=== PATIENT | male | born 1985 | race Caucasian/White ===

== ENCOUNTER 2024-06-03 15:59 | Outpatient (REF) | payer OTHER, SELFPAY ==
--- NOTE | 2024-06-03 | PFT_ITS ---
Flows: FEV1: 82 % of predicted at 3.63 L FVC: 92 % of predicted at 5.10 L FEV1/FVC: 71 % Bronchodilator response: Present in small to medium airways only Volumes: Total lung capacity: 84 % of predicted at 6.37 L Residual volume: 77 % of predicted at 1.32 L Slow vital capacity: 86 % of predicted at 5.05 L Expiratory reserve volume: 20 % of predicted at 0.34 L Diffusion capacity: Normal Impression: Moderate reversible obstructive ventilatory defect with bronchodilator response present in small to medium airways only. Decreased expiratory reserve volume suggests extrathoracic restriction likely secondary to abdominal obesity. MTDD
--- OUTSIDE RECORDS SUMMARY | 2024-06-03 16:47 | XMS_ITS | Clinical Summary ---
Author Organization [facility] Address [address] [place], [place] [id number] Phone Care Team Providers Care Director Of Strategic Sales Name Role Phone Sonido Gold MD Primary Care Provider Allergies No known active allergies Medications No known medications Immunizations Name Administration Dates Next Due Tdap 02/06/2018 Social History Tobacco Use Types Packs/Day Years Used Date Smoking Tobacco: Every Day Smokeless Tobacco: Never Alcohol Use Standard Drinks/Week Comments Yes 0 (1 standard drink = 0.6 oz pur e alcohol) Education Answer Date Recorded Are you interested in more education? Not on zachariah e 03/31/2023 Are you concerned about learning? Not on file 03/31/2023 No 03/31/2023 No 03/31/2023 Digital Access Answer Date Recorded No 03/31/2023 No 03/31/2023 Reliable internet access at home? Not on file 03/31/2023 Device with a working camera? Not on file Sex and Gender Information Value Date Recorded Sex Assigned at Not on file Gender Identity Not on file Sexual Orientation Not on file Last Filed Vital Signs Vital Sign Reading Time Taken Comments Blood Pressure 132/90 02/06/2018 10:16 PM EST Pulse 90 02/06/2018 10:16 PM EST Temperature 36.7 ??C (98 ??F) 02/06/2018 10:16 PM EST Respiratory Rate 16 02/06/2018 10:16 PM EST Oxygen Saturation 99% 02/06/2018 10:16 PM EST Inhaled Oxygen Concentration - - Weight 86.2 kg (190 lb) 02/06/2018 8:43 PM EST Height 180.3 cm (5' 11 ) 02/06/2018 8:43 PM EST Body Mass Index 26.5 02/06/2018 8:43 PM EST Plan of Treatment Not on file Medical Devices Not on file Care Teams Director Of Strategic Sales Relationship Specialty Start Date End Date Sonido Gold MD [address] [place] [address] PCP - General 01/06/17 Additional Source Comments The information contained in this document represents components of the legal health record. It is not the complete legal health record.[facility]
--- OUTSIDE RECORDS SUMMARY | 2024-06-03 16:47 | XMS_ITS | Encounter Summary ---
Author Organization [facility] Address [address] [place] [id number] Phone Care Team Providers Care Teen Counselor Name Role Phone Sonido Gold MD Primary Care Provider [phone] Encounter Details Date Type Department Care Team (Latest Contact Info) Description 03/31/2023 Transcribe Orders [facility] Specimen Processing [address] [place] [address] Coni Paz, ANHUM [address] [place] [address] Hypercholesteremia (Primary Dx) Social History Tobacco Use Types Packs/Day Years [...] on file Sexual Orientation Not on file documented as of this encounter Plan of Treatment Not on file documented as of this encounter Results * Vitamin C (03/31/2023 9:42 AM EST) VITAMIN C 0.8 0.4 - 2.0 mg/dL [facility] Comment: (NOTE) ADDITIONAL INFORMATION This test was developed and its performance characteristics determined by [facility] in a manner consistent with CLIA requirements. This test has not been cleared or approved by the [place].S. Food and Drug Administration. Blood 03/31/2023 9:42 AM EST 03/31/2023 10:40 AM EST Coni Paz [facility] [address] [place] [address] documented in this encounter Visit Diagnoses Diagnosis Hypercholesteremia- Primary Pure hypercholesterolemia documented in this encounter Care Teams Teen Counselor Relationship Specialty Start Date End Date Sonido Gold MD [address] [place] [id number] PCP - General 01/06/17 documented as of this encounter Additional Source Comments The information contained in this document represents components of the legal health record. It is not the complete legal health record.[facility]
[2024-06-03 16:49] VITALS: PULSE 82
== END 2024-06-03 16:00 | disposition home or self-care (01) ==
LOC: HO.RESP 15:59
PROVIDERS: PCP Nurse Practitioner Family; Visit Provider Nurse Practitioner Family
DX: R06.00 Dyspnea, unspecified (principal)
CPT/HCPCS: 94010; 94640; 94727; 94729

== ENCOUNTER → 2024-06-03 16:00 | Outpatient (BNV) | payer OTHER, SELFPAY | PROVIDERS: PCP Nurse Practitioner Family; Visit Provider Internal Medicine Pulmonary Disease | DX: R05.9 Cough, unspecified (principal); R06.09 Other forms of dyspnea | CPT/HCPCS: 94060; 94727; 94729 ==